=== PATIENT | male | born 1960 | race African-American/Black ===

== ENCOUNTER 2018-02-07 17:01 | Inpatient (IN) ==
[2018-02-07] MEDS ORDERED: FUROSEMIDE 100 MG/10 ML VIAL IV STA (17:35)
[2018-02-07] MEDS ORDERED: methylPREDNISolone SOD SUC 125 MG/2 ML VIAL IV STA (17:35)
[2018-02-07] MEDS ORDERED: ONDANSETRON 4 MG/2 ML VIAL IV STA (17:35)
[2018-02-07] MEDS ORDERED: FUROSEMIDE 20 MG/2 ML VIAL ONE (17:41)
[2018-02-07] MEDS ORDERED: FUROSEMIDE 40 MG/4 ML VIAL ONE (17:41)
[2018-02-07 17:44] LABS: Basophils % 0.5 % (0.0-0.8); Eosinophils # 0.1 10*3/uL (0.0-0.87); Eosinophils % 0.9 % (0.00-10.9); Hematocrit 28.3 VOL% (42.0-52.0); Immature Granulocytes % 0.6 %; Immature Granulocytes Absolute 0.05 #; Lymphocytes # 0.9 10*3/uL (1.4-4.0); Lymphocytes % 11.9 % (21.2-54.2); Mean Corpuscular HGB Conc 31.8 GM/DL (32-36); Mean Corpuscular Hemoglobin 28 PG (27-34); Mean Corpuscular Volume 86.5 FL (87-102); Mean Platelet Volume 9.8 FL (9.6-12.0); Monocytes # 0.4 10*3/uL (0.11-0.8); Monocytes % 5.2 % (1.7-12.7); Neutrophils # 6.4 10*3/uL (1.4-7.4); Neutrophils % 80.9 % (38.7-73.9); Platelet Count 250 T/CUMM (130-400); Red Blood Count 3.27 MC/CUMM (3.8-5.5); Red Cell Distribution Width 15.3 % (9.3-17.3); White Blood Count 7.9 T/CUMM (4-12)
[2018-02-07 17:51] LABS: PT Patient Result 10.8 SECS
[2018-02-07 17:54] LABS: Albumin 3.3 G/DL (3.4-5.0); Bilirubin,Total 0.8 MG/DL (0.2-1.0); Calcium 7.2 MG/DL (8.5-10.1); Total Protein 7.4 G/DL (6.4-8.3)
[2018-02-07] MEDS ORDERED: ALBUTEROL 2.5 MG/3 ML NEB RESP TX SCH (18:00)
[2018-02-07 18:12] LABS: Lactic Acid 0.6 MMOL/L (0.4-2.0)
[2018-02-07 18:18] LABS: Apearance,Urine CLEAR (Clear); Bilirubin,Urine Negative (Negative); Blood, Urine Negative (Negative); Glucose,Urine (UA) Negative (Negative); Ketones,Urine Negative (Negative); Mucus,Urine Occasional /LPF (Occasional); Nitrite,Urine Negative (Negative); Protein,Urine 100 MG/DL; RBC,Urine 2 /HPF (0-4); Urine Color Yellow (Yellow); Urine Specific Gravity 1.011 (1.001-1.035); Urine Urobilinogen < 2.0 EU/DL (0.2-1.0); WBC,Urine 1 /HPF (0-6)
[2018-02-07] MEDS ORDERED: MAGNESIUM SULF RIDER 4 GM in PREMIX 1 EACH IV PRN (19:35)
[2018-02-07] MEDS ORDERED: PROMETHAZINE 25 MG TABLET PO PRN (19:35)
[2018-02-07] MEDS ORDERED: POTASSIUM CHLORIDE RIDER 10 MEQ in PREMIX 1 EACH IV PRN (19:35)
[2018-02-07] MEDS ORDERED: MAGNESIUM SULF RIDER 2 GM in PREMIX 1 EACH IV PRN (19:35)
[2018-02-07] MEDS ORDERED: SODIUM POLYSTYRENE SULFATE 15 GM/60 ML BOTTLE PO STA (19:55)
[2018-02-07 20:04] LABS: Risk Ratio 2.82; VLDL CHOLESTEROL 37.6 MG/DL
[2018-02-07] MEDS ORDERED: AMITRIPTYLINE 10 MG TABLET PO PRN (20:07)
[2018-02-07] MEDS ORDERED: DEXTROSE 50% 25 GM/50 ML VIAL IV PRN (20:26)
[2018-02-07] MEDS ORDERED: GLUCAGON 1 MG VIAL IM PRN (20:26)
[2018-02-07] MEDS ORDERED: HEPARIN 5,000 UNIT/1 ML VIAL SUBCUT SCH (20:30)
[2018-02-07] MEDS ORDERED: CALCIUM GLUCONATE 2,000 MG in SODIUM CHLORIDE 0.9% 100 ML IV ONE (22:00)
[2018-02-07] MEDS ORDERED: cycloSPORINE 25 MG CAPSULE PO SCH (22:00)
[2018-02-07] MEDS: INSULIN LISPRO 100 UNIT/ML SUBCUT SCH (22:16)
[2018-02-07] MEDS: AMOXICILLIN 500 MG CAPSULE PO SCH (22:27)
[2018-02-07] MEDS: LABETALOL 100 MG TABLET PO SCH (22:27)
[2018-02-07] MEDS: DOCUSATE SODIUM 100 MG CAPSULE PO SCH (22:27)
[2018-02-07] MEDS: FERROUS SULFATE 325 MG TABLET PO SCH (22:28)
[2018-02-07] MEDS: SODIUM BICARBONATE 650 MG TABLET PO SCH (22:28)
[2018-02-07] MEDS: HEPARIN 5,000 UNIT/1 ML VIAL SUBCUT SCH (22:28)
[2018-02-08] MEDS: cycloSPORINE 100 MG CAPSULE PO SCH ×3 (04:28→21:21)
[2018-02-08 05:21] LABS: Hematocrit 29.2 VOL% (42.0-52.0); Hemoglobin 8.8 GM/DL (14.0-18.0); Immature Granulocytes % 0.2 %; Immature Granulocytes Absolute 0.01 #; Lymphocytes # 0.4 10*3/uL (1.4-4.0); Lymphocytes % 7.8 % (21.2-54.2); Mean Corpuscular HGB Conc 30.1 GM/DL (32-36); Mean Corpuscular Hemoglobin 26 PG (27-34); Mean Corpuscular Volume 85.9 FL (87-102); Mean Platelet Volume 10.3 FL (9.6-12.0); Monocytes # 0.1 10*3/uL (0.11-0.8); Neutrophils # 4.4 10*3/uL (1.4-7.4); Platelet Count 267 T/CUMM (130-400); Red Cell Distribution Width 15.3 % (9.3-17.3); White Blood Count 4.9 T/CUMM (4-12)
[2018-02-08] MEDS: AMOXICILLIN 500 MG CAPSULE PO SCH ×3 (05:34→21:25)
[2018-02-08 05:59] LABS: Lymphocytes 4 % (20-55); Platelet Estimate Normal; Polychromasia Few; Segmented Neutrophils 96 % (50-85); Total Cells Counted 100
[2018-02-08 06:01] LABS: Albumin 3.1 G/DL (3.4-5.0); Bilirubin,Total 0.8 MG/DL (0.2-1.0); Calcium 7.6 MG/DL (8.5-10.1); Osmolality,Calculated 294.8 MOS/KG (273-304); Potassium 5.4 MMOL/L (3.5-5.1)
[2018-02-08] MEDS ORDERED: FUROSEMIDE 40 MG/4 ML VIAL IV SCH ×2 (08:00)
[2018-02-08] MEDS ORDERED: INSULIN DETEMIR 100 UNIT/ML SUBCUT SCH (08:00)
[2018-02-08] MEDS: INSULIN LISPRO 100 UNIT/ML SUBCUT SCH ×4 (08:25→21:21)
[2018-02-08] MEDS: HEPARIN 5,000 UNIT/1 ML VIAL SUBCUT SCH ×2 (09:10→21:22)
[2018-02-08] MEDS: LABETALOL 100 MG TABLET PO SCH ×2 (09:10→15:12)
[2018-02-08] MEDS: CARVEDILOL 12.5 MG TABLET PO SCH (09:11)
[2018-02-08] MEDS: PANTOPRAZOLE 40 MG TABLET PO SCH (09:11)
[2018-02-08] MEDS: FERROUS SULFATE 325 MG TABLET PO SCH ×2 (09:11→21:19)
[2018-02-08] MEDS: ACETAMINOPHEN 325 MG TABLET PO PRN ×2 (09:11→15:03)
[2018-02-08] MEDS: DOCUSATE SODIUM 100 MG CAPSULE PO SCH ×2 (09:11→21:20)
[2018-02-08] MEDS: predniSONE 5 MG TABLET PO SCH (09:12)
[2018-02-08] MEDS: SODIUM BICARBONATE 650 MG TABLET PO SCH ×2 (09:16→21:19)
[2018-02-08] MEDS: cycloSPORINE 25 MG CAPSULE PO SCH ×2 (09:16→21:21)
[2018-02-08] MEDS ORDERED: FUROSEMIDE 40 MG/4 ML VIAL IV ONE (11:43)
[2018-02-08] MEDS ORDERED: cloNIDine 0.1 MG TABLET PO ONE ×2 (11:43→16:41)
[2018-02-08] MEDS: FUROSEMIDE 40 MG/4 ML VIAL IV SCH ×2 (15:12→21:14)
[2018-02-08] MEDS: cloNIDine 0.1 MG TABLET PO SCH ×2 (15:12→21:21)
[2018-02-08] MEDS ORDERED: hydrALAZINE 20 MG/1 ML VIAL IV ONE (16:35)
[2018-02-08] MEDS ORDERED: hydrALAZINE 10 MG TABLET PO ONE (16:42)
[2018-02-08] MEDS: INSULIN GLARGINE 100 UNIT/ML SUBCUT SCH (18:35)
[2018-02-08] MEDS: CARVEDILOL 25 MG TABLET PO SCH (21:20)
[2018-02-09] MEDS: CARVEDILOL 12.5 MG TABLET PO SCH (00:14)
[2018-02-09 05:47] LABS: Basophils % 0.3 % (0.0-0.8); Eosinophils # 0.1 10*3/uL (0.0-0.87); Eosinophils % 1.7 % (0.00-10.9); Hematocrit 26.5 VOL% (42.0-52.0); Hemoglobin 8.3 GM/DL (14.0-18.0); Immature Granulocytes % 0.5 %; Immature Granulocytes Absolute 0.03 #; Lymphocytes # 1.2 10*3/uL (1.4-4.0); Lymphocytes % 18.2 % (21.2-54.2); Mean Corpuscular HGB Conc 31.3 GM/DL (32-36); Mean Corpuscular Hemoglobin 27 PG (27-34); Mean Corpuscular Volume 86.3 FL (87-102); Mean Platelet Volume 10.7 FL (9.6-12.0); Monocytes # 0.5 10*3/uL (0.11-0.8); Monocytes % 8.2 % (1.7-12.7); Neutrophils # 4.6 10*3/uL (1.4-7.4); Neutrophils % 71.1 % (38.7-73.9); Platelet Count 260 T/CUMM (130-400); Red Blood Count 3.07 MC/CUMM (3.8-5.5); Red Cell Distribution Width 15.4 % (9.3-17.3); White Blood Count 6.5 T/CUMM (4-12)
[2018-02-09 06:19] LABS: Albumin 2.9 G/DL (3.4-5.0); Bilirubin,Total 1.4 MG/DL (0.2-1.0); Calcium 7.4 MG/DL (8.5-10.1); Osmolality,Calculated 298.7 MOS/KG (273-304); Potassium 4.8 MMOL/L (3.5-5.1); Total Protein 7.7 G/DL (6.4-8.3)
[2018-02-09] MEDS: AMOXICILLIN 500 MG CAPSULE PO SCH ×3 (06:30→21:26)
[2018-02-09] MEDS: INSULIN LISPRO 100 UNIT/ML SUBCUT SCH ×4 (07:39→22:02)
[2018-02-09] MEDS: FERROUS SULFATE 325 MG TABLET PO SCH ×2 (09:52→21:26)
[2018-02-09] MEDS: cycloSPORINE 25 MG CAPSULE PO SCH ×2 (09:52→21:24)
[2018-02-09] MEDS: CARVEDILOL 25 MG TABLET PO SCH ×2 (09:52→21:26)
[2018-02-09] MEDS: predniSONE 5 MG TABLET PO SCH (09:52)
[2018-02-09] MEDS: cloNIDine 0.1 MG TABLET PO SCH ×3 (09:52→21:26)
[2018-02-09] MEDS: cycloSPORINE 100 MG CAPSULE PO SCH ×2 (09:52→21:25)
[2018-02-09] MEDS: PANTOPRAZOLE 40 MG TABLET PO SCH (09:52)
[2018-02-09] MEDS: DOCUSATE SODIUM 100 MG CAPSULE PO SCH ×2 (09:52→21:26)
[2018-02-09] MEDS: SODIUM BICARBONATE 650 MG TABLET PO SCH ×2 (09:52→21:26)
[2018-02-09] MEDS: FUROSEMIDE 40 MG/4 ML VIAL IV SCH ×2 (09:53→14:00)
[2018-02-09] MEDS: HEPARIN 5,000 UNIT/1 ML VIAL SUBCUT SCH ×2 (09:56→21:28)
[2018-02-09] MEDS: FUROSEMIDE 80 MG TABLET PO SCH ×2 (14:44→21:26)
[2018-02-09] MEDS: INSULIN GLARGINE 100 UNIT/ML SUBCUT SCH (16:07)
[2018-02-10 04:55] LABS: Basophils % 0.6 % (0.0-0.8); Eosinophils # 0.2 10*3/uL (0.0-0.87); Eosinophils % 2.2 % (0.00-10.9); Hematocrit 27.3 VOL% (42.0-52.0); Hemoglobin 8.6 GM/DL (14.0-18.0); Immature Granulocytes % 0.4 %; Immature Granulocytes Absolute 0.03 #; Lymphocytes # 1.6 10*3/uL (1.4-4.0); Lymphocytes % 23.3 % (21.2-54.2); Mean Corpuscular HGB Conc 31.5 GM/DL (32-36); Mean Corpuscular Hemoglobin 27 PG (27-34); Mean Corpuscular Volume 85.8 FL (87-102); Mean Platelet Volume 10.4 FL (9.6-12.0); Monocytes # 0.6 10*3/uL (0.11-0.8); Monocytes % 8.1 % (1.7-12.7); Neutrophils # 4.4 10*3/uL (1.4-7.4); Neutrophils % 65.4 % (38.7-73.9); Platelet Count 256 T/CUMM (130-400); Red Blood Count 3.18 MC/CUMM (3.8-5.5); White Blood Count 6.8 T/CUMM (4-12)
[2018-02-10 05:30] LABS: Albumin 2.9 G/DL (3.4-5.0); Bilirubin,Total 0.9 MG/DL (0.2-1.0); Osmolality,Calculated 296.8 MOS/KG (273-304); Potassium 4.8 MMOL/L (3.5-5.1); Total Protein 7.5 G/DL (6.4-8.3)
[2018-02-10] MEDS: INSULIN LISPRO 100 UNIT/ML SUBCUT SCH ×4 (08:46→21:34)
[2018-02-10] MEDS: cycloSPORINE 100 MG CAPSULE PO SCH ×2 (09:40→21:27)
[2018-02-10] MEDS: FERROUS SULFATE 325 MG TABLET PO SCH ×2 (09:40→21:28)
[2018-02-10] MEDS: CARVEDILOL 25 MG TABLET PO SCH ×2 (09:40→21:29)
[2018-02-10] MEDS: PANTOPRAZOLE 40 MG TABLET PO SCH (09:40)
[2018-02-10] MEDS: predniSONE 5 MG TABLET PO SCH (09:40)
[2018-02-10] MEDS: cloNIDine 0.1 MG TABLET PO SCH ×3 (09:40→21:28)
[2018-02-10] MEDS: FUROSEMIDE 80 MG TABLET PO SCH ×3 (09:40→21:28)
[2018-02-10] MEDS: SODIUM BICARBONATE 650 MG TABLET PO SCH ×2 (09:40→21:28)
[2018-02-10] MEDS: DOCUSATE SODIUM 100 MG CAPSULE PO SCH ×2 (09:40→21:28)
[2018-02-10] MEDS: cycloSPORINE 25 MG CAPSULE PO SCH ×2 (09:41→21:35)
[2018-02-10] MEDS: HEPARIN 5,000 UNIT/1 ML VIAL SUBCUT SCH ×2 (09:41→21:30)
[2018-02-10] MEDS: INSULIN GLARGINE 100 UNIT/ML SUBCUT SCH (17:03)
[2018-02-11 05:37] LABS: Basophils % 0.3 % (0.0-0.8); Eosinophils # 0.1 10*3/uL (0.0-0.87); Eosinophils % 1.6 % (0.00-10.9); Hematocrit 29.1 VOL% (42.0-52.0); Hemoglobin 9.2 GM/DL (14.0-18.0); Immature Granulocytes % 0.5 %; Immature Granulocytes Absolute 0.03 #; Lymphocytes # 1.3 10*3/uL (1.4-4.0); Lymphocytes % 20.9 % (21.2-54.2); Mean Corpuscular HGB Conc 31.6 GM/DL (32-36); Mean Corpuscular Hemoglobin 27 PG (27-34); Mean Corpuscular Volume 84.6 FL (87-102); Mean Platelet Volume 10.1 FL (9.6-12.0); Monocytes # 0.5 10*3/uL (0.11-0.8); Monocytes % 8.4 % (1.7-12.7); Neutrophils # 4.3 10*3/uL (1.4-7.4); Neutrophils % 68.3 % (38.7-73.9); Platelet Count 278 T/CUMM (130-400); Red Blood Count 3.44 MC/CUMM (3.8-5.5); Red Cell Distribution Width 15.1 % (9.3-17.3); White Blood Count 6.3 T/CUMM (4-12)
[2018-02-11 06:15] LABS: Albumin 2.9 G/DL (3.4-5.0); Bilirubin,Total 1.4 MG/DL (0.2-1.0); Calcium 7.1 MG/DL (8.5-10.1); Osmolality,Calculated 296.2 MOS/KG (273-304); Potassium 4.7 MMOL/L (3.5-5.1); Total Protein 7.5 G/DL (6.4-8.3)
[2018-02-11 08:20] VITALS: BP 173/95
[2018-02-11] MEDS: SODIUM BICARBONATE 650 MG TABLET PO SCH (09:17)
[2018-02-11] MEDS: cloNIDine 0.1 MG TABLET PO SCH (09:18)
[2018-02-11] MEDS: HEPARIN 5,000 UNIT/1 ML VIAL SUBCUT SCH (09:18)
[2018-02-11] MEDS: DOCUSATE SODIUM 100 MG CAPSULE PO SCH (09:18)
[2018-02-11] MEDS: FUROSEMIDE 80 MG TABLET PO SCH (09:18)
[2018-02-11] MEDS: predniSONE 5 MG TABLET PO SCH (09:19)
[2018-02-11] MEDS: PANTOPRAZOLE 40 MG TABLET PO SCH (09:19)
[2018-02-11] MEDS: CARVEDILOL 25 MG TABLET PO SCH (09:19)
[2018-02-11] MEDS: FERROUS SULFATE 325 MG TABLET PO SCH (09:19)
[2018-02-11] MEDS: INSULIN LISPRO 100 UNIT/ML SUBCUT SCH (09:20)
[2018-02-11] MEDS: cycloSPORINE 100 MG CAPSULE PO SCH (09:22)
[2018-02-11] MEDS: cycloSPORINE 25 MG CAPSULE PO SCH (09:22)
== END 2018-02-11 12:46 | disposition home or self-care (01) | DRG 641 ==
LOC: N.ED 17:01 → N.EDINP 20:02 → SUATTDRO 20:02 → N.2E 21:05
PROVIDERS: ADMIT Hospitalist; ATTEND Internal Medicine Cardiovascular Disease

== ENCOUNTER 2020-01-25 19:45 | Inpatient (IN) ==
[2020-01-25 20:19] LABS: Basophils # 0.1 10*3/uL (0.0-0.2); Basophils % 0.4 % (0.0-0.8); Eosinophils # 0.2 10*3/uL (0.0-0.87); Eosinophils % 1.3 % (0.00-10.9); Hematocrit 33.7 VOL% (42.0-52.0); Hemoglobin 10.9 GM/DL (14.0-18.0); Immature Granulocytes Absolute 0.14 #; Lymphocytes # 1.8 10*3/uL (1.4-4.0); Lymphocytes % 13.2 % (21.2-54.2); Mean Corpuscular HGB Conc 32.3 GM/DL (32-36); Mean Corpuscular Volume 87.5 FL (87-102); Mean Platelet Volume 9.4 FL (9.6-12.0); Monocytes % 5.4 % (1.7-12.7); Neutrophils % 78.7 % (38.7-73.9); Platelet Count 394 T/CUMM (130-400); Red Blood Count 3.85 MC/CUMM (3.8-5.5); Red Cell Distribution Width 13.7 % (9.3-17.3); White Blood Count 13.4 T/CUMM (4-12)
[2020-01-25 20:46] LABS: Albumin 2.6 G/DL (3.4-5.0); Bilirubin,Total 0.6 MG/DL (0.2-1.0); Calcium 8.6 MG/DL (8.5-10.1); Osmolality,Calculated 293.4 MOS/KG (273-304); Total Protein 8.2 G/DL (6.4-8.3)
[2020-01-25] MEDS ORDERED: SODIUM CHLORIDE 0.9% 1,000 ML IV STA (21:05)
[2020-01-25] MEDS ORDERED: VANCOMYCIN INJ 1,000 MG in SODIUM CHLORIDE 0.9% 250 ML IV STA (21:56)
[2020-01-26] MEDS ORDERED: DEXTROSE 50% 25 GM/50 ML VIAL IV PRN ×2 (00:12→02:42)
[2020-01-26] MEDS ORDERED: GLUCAGON 1 MG VIAL IM PRN ×2 (00:12→02:42)
[2020-01-26] MEDS: PIPERACILLIN/TAZOBACTAM 3,375 MG in SODIUM CHLORIDE 0.9% 100 ML IV SCH ×2 (03:08→16:11)
[2020-01-26] MEDS ORDERED: VANCOMYCIN INJ 750 MG in SODIUM CHLORIDE 0.9% 250 ML IV PRN (03:44)
[2020-01-26] MEDS ORDERED: VANCOMYCIN INJ 1,000 MG in SODIUM CHLORIDE 0.9% 250 ML IV ONE (04:00)
[2020-01-26] MEDS: HYDROmorphone 2 MG/1 ML VIAL IV PRN ×5 (05:01→22:10)
[2020-01-26 06:48] LABS: Bacteria,Urine Occasional /HPF (Few); Bilirubin,Urine Negative (Negative); Blood, Urine Moderate mg/dL (Negative); Glucose,Urine (UA) Negative (Negative); Ketones,Urine 5 mg/dL (Negative); Mucus,Urine Occasional /LPF (Occasional); Nitrite,Urine Negative (Negative); Protein,Urine 100 MG/DL; RBC,Urine 18 /HPF (0-4); Squamous Epithelial Cell,Urine Occasional /HPF (0-10); Urine Appearance CLEAR (Clear); Urine Color Yellow (Yellow); Urine Specific Gravity 1.012 (1.001-1.035); Urine Urobilinogen < 2.0 EU/DL (0.2-1.0); WBC,Urine 1 /HPF (0-6)
[2020-01-26] MEDS ORDERED: INSULIN GLARGINE 100 UNIT/ML SUBCUT SCH (08:00)
[2020-01-26] MEDS ORDERED: SODIUM BICARBONATE 650 MG TABLET PO SCH (09:00)
[2020-01-26] MEDS: DEXTROSE 5% NACL 0.45% 1,000 ML IV SCH ×3 (09:30→23:52)
[2020-01-26] MEDS: LABETALOL 200 MG TABLET PO SCH ×3 (09:39→22:20)
[2020-01-26] MEDS: cloNIDine 0.1 MG TABLET PO SCH ×3 (09:39→22:19)
[2020-01-26] MEDS: FERROUS SULFATE 325 MG TABLET PO SCH ×2 (09:39→22:19)
[2020-01-26] MEDS: ENOXAPARIN 30 MG/0.3 ML SYRINGE SUBCUT SCH (09:39)
[2020-01-26] MEDS: SODIUM BICARBONATE 650 MG TABLET PO SCH ×3 (09:39→22:20)
[2020-01-26] MEDS: cycloSPORINE (MODIFIED) 100 MG CAPSULE PO SCH ×3 (09:41→22:20)
[2020-01-26 09:45] LABS: Calcium 8.1 MG/DL (8.5-10.1)
[2020-01-26] MEDS: predniSONE 5 MG TABLET PO SCH (09:46)
[2020-01-26] MEDS ORDERED: hydrALAZINE 20 MG/1 ML VIAL IV PRN (12:03)
[2020-01-26] MEDS: CHLORHEXIDINE 0.12% ORAL RINSE 60 ML BOTTLE SWISH/SPIT SCH ×2 (12:16→22:20)
[2020-01-26] MEDS ORDERED: fentaNYL 100 MCG/2 ML VIAL ONE (18:13)
[2020-01-26] MEDS ORDERED: LIDOCAINE 1%/EPI INJ 20 ML VIAL ONE (18:17)
[2020-01-26] MEDS ORDERED: ROCURONIUM 50 MG/5 ML VIAL IV ONE (18:53)
[2020-01-26] MEDS ORDERED: propofoL 200 MG/20 ML VIAL IV ONE (18:53)
[2020-01-26] MEDS ORDERED: LIDOCAINE 2% 5 ML VIAL ONE (18:53)
[2020-01-26] MEDS ORDERED: ONDANSETRON 4 MG/2 ML VIAL ONE (18:53)
[2020-01-26] MEDS ORDERED: SUCCINYLCHOLINE 200 MG/10 ML VIAL ONE (18:53)
[2020-01-26] MEDS ORDERED: ONDANSETRON 4 MG/2 ML VIAL IV PRN (19:33)
[2020-01-26] MEDS: cycloSPORINE 25 MG CAPSULE PO SCH (22:20)
[2020-01-27] MEDS: HYDROmorphone 2 MG/1 ML VIAL IV PRN ×2 (03:46→10:20)
[2020-01-27] MEDS: PIPERACILLIN/TAZOBACTAM 3,375 MG in SODIUM CHLORIDE 0.9% 100 ML IV SCH ×2 (03:46→15:33)
[2020-01-27] MEDS: ONDANSETRON 4 MG/2 ML VIAL IV PRN ×2 (03:48→15:30)
[2020-01-27 04:15] LABS: ABG Base Excess -7.6 MMOL/L (-2.5-2.5); ABG HCO3 17.1 MMOL/L (20-26); ABG PCO2 31.6 MM HG (35-48); ABG PH 7.351 (7.35-7.45); ABG PO2 62.5 MM HG (80-95); ABG TCO2 18.1 MMOL/L (23-27); Allen Test Positive; Pt O2 Delivery Device Room Air
[2020-01-27 05:59] LABS: Basophils % 0.3 % (0.0-0.8); Eosinophils # 0.1 10*3/uL (0.0-0.87); Eosinophils % 1.2 % (0.00-10.9); Hemoglobin 9.4 GM/DL (14.0-18.0); Immature Granulocytes % 0.8 %; Lymphocytes # 1.5 10*3/uL (1.4-4.0); Lymphocytes % 12.6 % (21.2-54.2); Mean Corpuscular HGB Conc 31.3 GM/DL (32-36); Mean Corpuscular Volume 90.6 FL (87-102); Mean Platelet Volume 9.5 FL (9.6-12.0); Monocytes % 5.9 % (1.7-12.7); Neutrophils % 79.2 % (38.7-73.9); Platelet Count 321 T/CUMM (130-400); Red Blood Count 3.31 MC/CUMM (3.8-5.5); White Blood Count 11.8 T/CUMM (4-12)
[2020-01-27 06:22] LABS: Uric Acid 10.7 MG/DL (3.5-7.2)
[2020-01-27 06:24] LABS: Albumin 2.4 G/DL (3.4-5.0); Bilirubin,Total 0.5 MG/DL (0.2-1.0); Osmolality,Calculated 292.4 MOS/KG (273-304); Total Protein 7.4 G/DL (6.4-8.3)
[2020-01-27] MEDS: FERROUS SULFATE 325 MG TABLET PO SCH ×2 (10:16→22:06)
[2020-01-27] MEDS: ENOXAPARIN 30 MG/0.3 ML SYRINGE SUBCUT SCH (10:16)
[2020-01-27] MEDS: LABETALOL 200 MG TABLET PO SCH ×3 (10:16→22:08)
[2020-01-27] MEDS: SODIUM BICARBONATE 650 MG TABLET PO SCH ×3 (10:16→22:08)
[2020-01-27] MEDS: predniSONE 5 MG TABLET PO SCH (10:16)
[2020-01-27] MEDS: CHLORHEXIDINE 0.12% ORAL RINSE 60 ML BOTTLE SWISH/SPIT SCH ×2 (10:17→22:07)
[2020-01-27] MEDS: cloNIDine 0.1 MG TABLET PO SCH ×3 (10:17→22:05)
[2020-01-27] MEDS: cycloSPORINE (MODIFIED) 100 MG CAPSULE PO SCH ×2 (10:17→22:06)
[2020-01-27] MEDS: cycloSPORINE 25 MG CAPSULE PO SCH ×2 (10:17→22:07)
[2020-01-27] MEDS: DEXTROSE 5% NACL 0.45% 1,000 ML IV SCH (12:56)
[2020-01-28] MEDS: PIPERACILLIN/TAZOBACTAM 3,375 MG in SODIUM CHLORIDE 0.9% 100 ML IV SCH ×2 (03:32→15:43)
[2020-01-28 06:45] LABS: Basophils % 0.3 % (0.0-0.8); Eosinophils # 0.2 10*3/uL (0.0-0.87); Hemoglobin 9.2 GM/DL (14.0-18.0); Immature Granulocytes % 0.7 %; Immature Granulocytes Absolute 0.09 #; Lymphocytes # 1.8 10*3/uL (1.4-4.0); Mean Corpuscular HGB Conc 31.7 GM/DL (32-36); Mean Corpuscular Volume 89.8 FL (87-102); Mean Platelet Volume 9.3 FL (9.6-12.0); Monocytes % 7.5 % (1.7-12.7); Neutrophils % 74.5 % (38.7-73.9); Platelet Count 286 T/CUMM (130-400); Red Blood Count 3.23 MC/CUMM (3.8-5.5); Red Cell Distribution Width 13.9 % (9.3-17.3); White Blood Count 12.2 T/CUMM (4-12)
[2020-01-28 07:21] LABS: Calcium 7.5 MG/DL (8.5-10.1); Osmolality,Calculated 287.5 MOS/KG (273-304)
[2020-01-28] MEDS: DEXTROSE 5% NACL 0.45% 1,000 ML IV SCH (10:09)
[2020-01-28] MEDS: predniSONE 5 MG TABLET PO SCH (10:11)
[2020-01-28] MEDS: LABETALOL 200 MG TABLET PO SCH ×3 (10:12→22:58)
[2020-01-28] MEDS: SODIUM BICARBONATE 650 MG TABLET PO SCH ×3 (10:13→22:58)
[2020-01-28] MEDS: FERROUS SULFATE 325 MG TABLET PO SCH ×2 (10:13→22:57)
[2020-01-28] MEDS: cloNIDine 0.1 MG TABLET PO SCH ×3 (10:13→22:56)
[2020-01-28] MEDS: cycloSPORINE 25 MG CAPSULE PO SCH ×2 (10:13→22:57)
[2020-01-28] MEDS: CHLORHEXIDINE 0.12% ORAL RINSE 60 ML BOTTLE SWISH/SPIT SCH ×2 (10:13→22:57)
[2020-01-28] MEDS: cycloSPORINE (MODIFIED) 100 MG CAPSULE PO SCH ×2 (10:13→22:57)
[2020-01-28] MEDS: ENOXAPARIN 30 MG/0.3 ML SYRINGE SUBCUT SCH (10:14)
[2020-01-28] MEDS ORDERED: VANCOMYCIN INJ 1,500 MG in SODIUM CHLORIDE 0.9% 500 ML IV ONE (12:00)
[2020-01-28] MEDS: FUROSEMIDE 80 MG TABLET PO SCH (13:26)
[2020-01-29] MEDS: PIPERACILLIN/TAZOBACTAM 3,375 MG in SODIUM CHLORIDE 0.9% 100 ML IV SCH (03:15)
[2020-01-29 05:46] LABS: Basophils % 0.3 % (0.0-0.8); Eosinophils # 0.2 10*3/uL (0.0-0.87); Eosinophils % 2.1 % (0.00-10.9); Hematocrit 26.6 VOL% (42.0-52.0); Hemoglobin 8.3 GM/DL (14.0-18.0); Immature Granulocytes % 1.1 %; Lymphocytes # 1.7 10*3/uL (1.4-4.0); Mean Corpuscular HGB Conc 31.2 GM/DL (32-36); Mean Corpuscular Volume 90.2 FL (87-102); Mean Platelet Volume 9.6 FL (9.6-12.0); Monocytes % 6.6 % (1.7-12.7); Neutrophils % 70.9 % (38.7-73.9); Platelet Count 281 T/CUMM (130-400); Red Blood Count 2.95 MC/CUMM (3.8-5.5); Red Cell Distribution Width 14.1 % (9.3-17.3); White Blood Count 9.1 T/CUMM (4-12)
[2020-01-29 06:09] LABS: Calcium 7.3 MG/DL (8.5-10.1); Osmolality,Calculated 286.5 MOS/KG (273-304)
[2020-01-29] MEDS: SODIUM BICARBONATE 650 MG TABLET PO SCH (10:34)
[2020-01-29] MEDS: cloNIDine 0.1 MG TABLET PO SCH (10:34)
[2020-01-29] MEDS: FERROUS SULFATE 325 MG TABLET PO SCH (10:34)
[2020-01-29] MEDS: FUROSEMIDE 80 MG TABLET PO SCH (10:35)
[2020-01-29] MEDS: LABETALOL 200 MG TABLET PO SCH (10:35)
[2020-01-29] MEDS: predniSONE 5 MG TABLET PO SCH (10:35)
[2020-01-29] MEDS: ENOXAPARIN 30 MG/0.3 ML SYRINGE SUBCUT SCH (10:36)
[2020-01-29] MEDS: cycloSPORINE 25 MG CAPSULE PO SCH (10:40)
[2020-01-29] MEDS: CHLORHEXIDINE 0.12% ORAL RINSE 60 ML BOTTLE SWISH/SPIT SCH (10:41)
[2020-01-29] MEDS: cycloSPORINE (MODIFIED) 100 MG CAPSULE PO SCH (10:42)
[2020-01-29 11:59] VITALS: BP 162/72
[2020-01-30] MEDS ORDERED: MULTIVITAMIN (BEROCCA) TABLET PO SCH (09:00)
== END 2020-01-29 14:30 | disposition home health service (06) | DRG 570 ==
LOC: EDBD → EDUNIT# → N.ED 19:45 → N.EDINP 01-26 00:12 → N.3E 01-26 02:00
PROVIDERS: ADMIT Internal Medicine; ATTEND Internal Medicine